=== PATIENT | female | born 1970 | race Caucasian/White ===

== ENCOUNTER 2024-07-04 10:35 | Outpatient (CLI) | payer BC, SELFPAY ==
--- NOTE | 2024-07-04 11:00 | CRLHL7_ITS ---
For Patients: As a result of the Century Cures Act, medical imaging exams and procedure reports are released immediately into your electronic medical record. You may view this report before your referring provider. If you have questions, please contact your health care provider. INDICATION : Right thyroid nodule. TECHNIQUE : Ultrasound-guided fine needle aspiration of thyroid nodule. COMPARISON : Outside ultrasound 06/29/2024 FINDINGS : PROCEDURE: After the informed consent and time-out, multiple fine needle aspirations were obtained from the thyroid nodule. Fine needle performed. 25 gauge needles were used. Lidocaine was used for local anesthesia. The preliminary cytology was adequate for interpretation. Real-time imaging was used for guidance and needle placement. Post imaging ultrasound demonstrates no immediate complication. IMPRESSION : Successful fine needle aspiration of solid TR 4 right thyroid lobe nodule. Dictated by Dilip Marie MD @ 07/04/2024 1:32:19 PM (Electronically Signed)
--- NOTE | 2024-07-04 11:30 | CRLHL7_ITS ---
For Patients: As a result of the Century Cures Act, medical imaging exams and procedure reports are released immediately into your electronic medical record. You may view this report before your referring provider. If you have questions, please contact your health care provider. ULTRASOUND-GUIDED LEFT SUPRACLAVICULAR LYMPH NODE BIOPSY CLINICAL HISTORY: Left supraclavicular swelling with adenopathy on outside CT COMPARISON STUDIES: Outside CT neck 06/29/2024 TECHNIQUE: Real-time ultrasound with image documentation was used for targeting the left supraclavicular lymph node lesion. Core biopsy specimens were obtained using an automated gun with an 18-gauge biopsy needle. CONSENT and TIME OUT: The procedure, risks, and alternatives were explained to the patient and a consent was signed. [place] Protocol was followed including pre-procedure verification that relevant information/documentation was available, reviewed and properly matched to the patient; consent accurate and complete; and equipment and supplies available. Time Out was conducted just prior to starting procedure to verify the four required elements: patient identity, correct side/site marked (if applicable), procedure, relevant images/results properly labeled and displayed (if applicable). PROCEDURE: The patient was positioned supine on the ultrasound table. The left supraclavicular region was prepped with ChloraPrep. 8 cc of 1 percent lidocaine used for local anesthesia. Core samples were obtained. The specimens were placed in 10% formalin and sent to the pathology department. Pressure was held on the biopsy site until all bleeding subsided. The skin incision was closed with Steri-Strips. Post-biopsy instructions were reviewed with the patient, and a written copy was given to her. LATERALITY: Left supraclavicular space LESION: The largest lymph node was biopsied, a circumscribed hypoechoic lymph node measuring 1.8 x 1.7 x 2.0 cm in the left supraclavicular region SUSPICION FOR MALIGNANCY: Intermediate, suppurative adenitis versus lymphoma NUMBER OF SAMPLES: 5 IMPRESSION: Ultrasound-guided left supraclavicular lymph node biopsy Dictated by Dilip Marie MD @ 07/04/2024 1:35:00 PM (Electronically Signed)
== END 2024-07-04 10:36 | disposition home or self-care (01) ==
LOC: US 10:38
PROVIDERS: PCP Physician Assistant Medical; Visit Provider Physician Assistant
DX: E04.1 Nontoxic single thyroid nodule (principal); R22.1 Localized swelling, mass and lump, neck; R93.89 Abnormal findings on diagnostic imaging of other specified body structures
CPT/HCPCS: 10005; 38505; 76942; 88173; 88305; 88312; 88341; 88342; 88360; 88365; J2003